=== PATIENT | male | born 1945 | race Hispanic/Latino ===

== ENCOUNTER 2018-09-17 17:43 | Emergency (ER) | payer MEDICARE ==
[~2018-09-17] VITALS: Ht 172.7 cm; Wt 75.5 kg
[~2018-09-17 17:43] MED LIST: ADVAIR HF2 IN; ASPIRIN LOW DOS81 M2 PO; HUMIRA PE1 SC; NIASPAN500 MG PO
[2018-09-17] MEDS ORDERED: PRALUENT75 MG/ML IM (18:37)
[2018-09-17] MEDS ORDERED: HUMIRA40 MG/0.8 IM (18:38)
[2018-09-17] MEDS ORDERED: ADVAIR DISK1 IN (18:39)
[2018-09-17] MEDS ORDERED: MAGNESIUM500 M1 PO (18:40)
[2018-09-17] MEDS ORDERED: SAW PALMETTO450 MG PO (18:40)
[2018-09-17] MEDS ORDERED: CINNAMON500 MG PO (18:41)
[2018-09-17] MEDS ORDERED: FLAXSEED OIL1200 MG PO (18:41)
[2018-09-17] MEDS ORDERED: COQ10200 MG PO (18:42)
[2018-09-17 18:45] LABS: HEMATOCRIT 46.6 % (39.0-50.0); HEMOGLOBIN 15.1 g/dl (14.0-18.0); IMMATURE GRANULOCYTES 0.3 % (0.0-5.0); MEAN CELL VOLUME 95.1 fL CALC (80.0-100.0); MEAN CORPUSCULAR HGB 30.8 pG CALC (26.0-32.0); MEAN CORPUSCULAR HGB CONC 32.4 g/L CALC (32.0-36.0); NEUT# 6.45 thou/uL (1.82-7.42); RED BLOOD COUNT 4.9 mill/uL (4.70-6.10); RED CELL DISTRI WIDTH 13.2 % (11.5-15.5)
[2018-09-17 18:59] LABS: ALBUMIN 3.3 g/dL (3.2-5.0); ALKALINE PHOSPHATASE 61 u/l (38-126); ANION GAP 13 (6-22 (CALC)); BILIRUBIN, TOTAL 0.4 mg/dL (0.0-1.4); BUN 27 mg/dL (8-23); BUN/CREATININE RATIO 30 (12-20 (CALC)); CARBON DIOXIDE 25 mmol/l (22-30); CHLORIDE 102 mmol/l (95-108); CREATININE 0.9 mg/dL (0.7-1.3); GFR > 60 ML/MIN (>=60 (CALC)); GFR FOR AFR.AMER. > 60 ML/MIN (>=60 (CALC)); LIPASE 135 u/l (23-300); POTASSIUM 4.6 mmol/l (3.5-5.1); PROTHROMBIN TIME 10.6 SECONDS (9.0-12.5); SGOT/AST 35 u/l (19-48); SODIUM 135 mmol/l (137-146); TOTAL PROTEIN 6.3 g/dL (6.3-8.2)
[2018-09-17] MEDS ORDERED: Levaquin PO (21:52)
[2018-09-17 23:06] VITALS: BP 131/68
== END 2018-09-17 23:00 | disposition left against medical advice (07) ==
LOC: ED 17:43
PROVIDERS: Family Medicine
DX: K57.33 Diverticulitis of large intestine without perforation or abscess with bleeding (principal); E78.5 Hyperlipidemia, unspecified; M19.90 Unspecified osteoarthritis, unspecified site; J45.909 Unspecified asthma, uncomplicated
CPT/HCPCS: J1956

== ENCOUNTER → 2018-11-28 | Outpatient (REF) | payer MEDICARE ==
[~2018-11-28] MED LIST changes: +ADVAIR DISK1 IN; +CINNAMON500 MG PO; +COQ10200 MG PO; +FLAXSEED OIL1200 MG PO; +HUMIRA40 MG/0.8 IM; +Levaquin PO; +MAGNESIUM500 M1 PO; +PRALUENT75 MG/ML IM; +SAW PALMETTO450 MG PO
[2018-11-28 10:39] LABS: HEMOGLOBIN 13.9 g/dl (14.0-18.0); IMMATURE GRANULOCYTES 0.3 % (0.0-5.0); MEAN CELL VOLUME 95.7 fL CALC (80.0-100.0); MEAN CORPUSCULAR HGB 30.2 pG CALC (26.0-32.0); MEAN CORPUSCULAR HGB CONC 31.6 g/L CALC (32.0-36.0); NEUT# 4.33 thou/uL (1.82-7.42); RED BLOOD COUNT 4.6 mill/uL (4.70-6.10); RED CELL DISTRI WIDTH 13.9 % (11.5-15.5)
[2018-11-28 11:00] LABS: ALBUMIN 3.5 g/dL (3.2-5.0); BILIRUBIN, TOTAL 0.5 mg/dL (0.0-1.4); C-REACTIVE PROTEIN 0.6 mg/dL (0-0.9); CREATININE 0.9 mg/dL (0.7-1.3); TOTAL PROTEIN 6.5 g/dL (6.3-8.2)
== END | disposition home or self-care (01) ==
LOC: LAB 09:56
PROVIDERS: ATTEND Internal Medicine Rheumatology
DX: M05.79 Rheumatoid arthritis with rheumatoid factor of multiple sites without organ or systems involvement (principal); Z79.899 Other long term (current) drug therapy